=== PATIENT | female | born 1975 | race Caucasian/White ===

== ENCOUNTER 2020-06-28 17:19 | Emergency (ER) | payer OTHER, SELFPAY ==
[2020-06-28 18:38] VITALS: BP 108/60; PULSE 55; RESP 16; TEMP 37.2; O2SAT 99; BMI 25.2
--- NOTE | 2020-06-28 20:09 | ED.FALL ---
HPI - Fall General Chief Complaint: Fall <Dmitry Stubbs NP - Last Filed: 06/28/20 20:16> Stated Complaint: FALL <Dmitry Stubbs NP - Last Filed: 06/28/20 20:16> Time Seen by Provider: 06/28/20 20:09 <Dmitry Stubbs NP - Last Filed: 06/28/20 20:16> Source: patient <Dmitry Stubbs NP - Last Filed: 06/28/20 20:16> Mode of arrival: ambulatory <Dmitry Stubbs NP - Last Filed: 06/28/20 20:16> Limitations: no limitations <Dmitry Stubbs NP - Last Filed: 06/28/20 20:16> History of Present Illness MD complaint: fall <Dmitry Stubbs NP - Last Filed: 06/28/20 20:16> Onset (ago): hour(s) <Dmitry Stubbs NP - Last Filed: 06/28/20 20:16> Fall from: standing <Dmitry Stubbs NP - Last Filed: 06/28/20 20:16> Fall witnessed: yes, by bystander <Dmitry Stubbs NP - Last Filed: 06/28/20 20:16> Place fall occurred: other ( gestation) <Dmitry Stubbs NP - Last Filed: 06/28/20 20:16> Loss of consciousness: none <Dmitry Stubbs NP - Last Filed: 06/28/20 20:16> Prolonged down time: no <Dmitry Stubbs NP - Last Filed: 06/28/20 20:16> Symptoms prior to fall: none <Dmitry Stubbs NP - Last Filed: 06/28/20 20:16> Context: tripped/slipped ( states she tripped on a rug at the door) <Dmitry Stubbs NP - Last Filed: 06/28/20 20:16> Location of injury: other ( bilateral knee) <Dmitry Stubbs NP - Last Filed: 06/28/20 20:16> Location of injury - extremities: bilateral: lower leg <Dmitry Stubbs NP - Last Filed: 06/28/20 20:16> Severity: mild <Dmitry Stubbs NP - Last Filed: 06/28/20 20:16> Quality: aching <Dmitry Stubbs NP - Last Filed: 06/28/20 20:16> Associated symptoms (after fall): other ( pain at the site of the abrasion of bilateral knees and lower back) <Dmitry Stubbs NP - Last Filed: 06/28/20 20:16> Related Data Allergies/Adverse Reactions: Allergies Allergy/AdvReac Type Severity Reaction Status Date / Time Penicillins Allergy Mild HIVES/VOMIT Verified 06/28/20 18:42 ING <Dmitry Stubbs NP - Last Filed: 06/28/20 20:16> Review of Systems Review of Systems: Constitutional: No Weight loss, No Fever, No Chills, No Night Sweats, No Fatigue, No Malaise ENT/Mouth: No Hearing loss, No Ear Pain, No Nasal Congestion, No Sinus Pain, No Hoarseness, No sore throat, No Rhinorrhea, No Swallowing Difficulty Eyes: No Eye Pain, No Swelling, No Redness, No Foreign Body, No Discharge, No Vision Changes Cardiovascular: No Chest Pain, No SOB, No Dyspnea on Exertion, No Orthopnea, No Edema, No Palpitations Respiratory: No Cough, No Sputum, No Wheezing, No Smoke Exposure, No Dyspnea Gastrointestinal: No Nausea, No Vomiting, No Diarrhea, No Constipation, No abdominal Pain, No Hematochezia, No Melena Genitourinary: no irregular bleeding, No Dysuria, No Urinary Frequency, No Hematuria, No Urinary Incontinence, No Urgency, No Flank Pain, No Urinary Flow Changes, No Hesitancy Musculoskeletal: No joint pain, No Myalgias, No Joint Swelling + abrasion to bilateral knees, back pain Skin: No Skin Lesions, No rash Neuro: No Weakness, No Numbness, No Paresthesias, No Loss of Consciousness, No Dizziness, No Headache Psych: No Anxiety/Panic, No Depression, No SI/HI/AH/VH, No Social Issues, Heme/Lymph: No Bruising, No Bleeding,No Lymphadenopathy Endocrine: No Polyuria, No Polydipsia, No Temperature Intolerance <RUBI Bains Last Filed: 06/28/20 20:16> Yes all other systems are reviewed and are negative <RUBI Bains Last Filed: 06/28/20 20:16> PMFSH Past Medical History Medical History: Medical History Anxiety Depression Drug abuse and dependence Methadone maintenance therapy patient PTSD (post-traumatic stress disorder) <Dmitry Stubbs NP - Last Filed: 06/28/20 20:16> Social History Social History: Social History Alcohol intake: never Smoking Status: Current every day smoker Smoked in Last 30 Days: Yes Use of substances other than those prescribed or required for medical reasons: No Substance Use Type: Prescription Drugs Substance Use Type Other:: METHADONE Advance Directives: No Advance Directives Information Provided: Yes <Dmitry Stubbs NP - Last Filed: 06/28/20 20:16> Physical Exam Vital Signs: Vital Signs: Vital Signs Temp Pulse Resp BP Pulse Ox 06/28/20 18:38 99.0 F 55 16 108/60 99 Body Mass Index 25.2 reviewed <Dmitry Stubbs NP - Last Filed: 06/28/20 20:16> Vital Signs: Vital Signs Temp Pulse Resp BP Pulse Ox 06/28/20 18:38 99.0 F 55 16 108/60 99 Body Mass Index 25.2 <Demarcus Peters MD - Last Filed: 07/03/20 15:23> Const: General: cooperative and healthy appearing; No acute distress or intoxicated appearing <Dmitry Stubbs NP - Last Filed: 06/28/20 20:16> Nutritional Appearance: average body habitus <Dmitry Stubbs NP - Last Filed: 06/28/20 20:16> Orientation/consciousness: patient oriented x3 <Dmitry Stubbs NP - Last Filed: 06/28/20 20:16> HENMT: Head: Yes normal to inspection <Dmitry Stubbs NP - Last Filed: 06/28/20 20:16> Ears: hearing grossly normal bilaterally <Dmitry Stubbs NP - Last Filed: 06/28/20 20:16> Eyes: General: appearance normal, both eyes and all related structures <Dmitry tSubbs NP - Last Filed: 06/28/20 20:16> Visual Holcomb: normal visual holcomb by confrontation <Dmitry Stubsb NP - Last Filed: 06/28/20 20:16> Neck: Neck: Yes normal visual inspection and No tender <Dmitry Stubbs, [employer] - Last Filed: 06/28/20 20:16> Thyroid: Thyroid normal <[facility] Enoc [employer] - Last Filed: 06/28/20 20:16> Chest: Chest palpation & inspection: normal inspection of the chest <Dmitry Enoc [employer] - Last Filed: 06/28/20 20:16> Resp: Effort & Inspection: normal respiratory effort <[facility] [employer] - Last Filed: 06/28/20 20:16> Cardio: Jugular venous distension: no JVD <[facility] Stubbs [employer] - Last Filed: 06/28/20 20:16> GI: Inspection: Yes normal to inspection <[facility] Stubbs [employer] - Last Filed: 06/28/20 20:16> Percussion: Yes normal to percussion <[facility] Stubbs [employer] - Last Filed: 06/28/20 20:16> Auscultation: normal bowel sounds <[facility] Stubbs [employer] - Last Filed: 06/28/20 20:16> : General: Yes no CVA tenderness <[facility] Stubbs [employer] - Last Filed: 06/28/20 20:16> Back/Spine/Pelvis: Back: no CVA tenderness <[facility] Stubbs [employer] - Last Filed: 06/28/20 20:16> Skin: General skin exam: no rashes or lesions noted <[facility] Stubbs [employer] - Last Filed: 06/28/20 20:16> Neuro: General: patient oriented x3 <[facility] Stubbs [employer] - Last Filed: 06/28/20 20:16> Extrem: General: Yes normal to inspection <[facility] Stubbs [employer] - Last Filed: 06/28/20 20:16> Psych: Appearance: grossly normal <[facility] Stubbs [employer] - Last Filed: 06/28/20 20:16> Course Course Course Narrative: I have reviewed the chart <Demarcus Peters MD - Last Filed: 07/03/20 15:23> MDM - Fall MDM Narrative Medical decision making narrative: AP of mechanical fall with results of abrasion to the bilateral knee. Ambulatory status with gait. No obvious deformity. No indication for imaging. Patient agreeable with this discharge return follow-up precautions provided. Stable for discharge. <[facility] Stubbs, [employer] - Last Filed: 06/28/20 20:16> Differential Diagnosis Differential diagnosis: Unlikely syncope, dislocation, fracture ( contusion, sprain, abrasion), compression fracture and concussion with loss of consciousness <Dmitry Stubbs NP - Last Filed: 06/28/20 20:16> Discharge Plan Discharge Clinical Impression: Fall, Abrasion of both knees, Lumbar spine strain <Dmitry Stubbs NP - Last Filed: 06/28/20 20:16> Patient Disposition: Home, Self-Care <Dmitry Stubbs NP - Last Filed: 06/28/20 20:16> Instructions: Low Back Strain (ED), Abrasion (ED) <Dmitry Stubbs NP - Last Filed: 06/28/20 20:16> Additional Instructions: Gentle stretching Warm compresses Tylenol alternate with Motrin per label instructions for pain discomfort Follow-up her primary care doctor as instructed Return if any concerns or worsening symptoms Thank you <Dmitry Stubbs NP - Last Filed: 06/28/20 20:16> Referrals: Physician,Unknown [Primary Care Provider] - 1 week ( your primary care doctor) <Dmitry Stubbs NP - Last Filed: 06/28/20 20:16> Interventions: ED Discharge Assessment Last Done: 06/28/20 20:16 <Dmitry Stubbs NP - Last Filed: 06/28/20 20:16> Discharge Date/Time: 06/28/20 20:13 <Dmitry Stubbs NP - Last Filed: 06/28/20 20:16>
== END 2020-06-28 20:13 | disposition home or self-care (01) ==
PROVIDERS: Emergency Provider Emergency Medicine
DX: S39.012A Strain of muscle, fascia and tendon of lower back, initial encounter (principal); S80.212A Abrasion, left knee, initial encounter; S80.211A Abrasion, right knee, initial encounter; W00.0XXA Fall on same level due to ice and snow, initial encounter; F11.20 Opioid dependence, uncomplicated; F43.10 Post-traumatic stress disorder, unspecified; Y93.89 Activity, other specified; Y92.019 Unspecified place in single-family (private) house as the place of occurrence of the external cause; Y99.9 Unspecified external cause status
CPT/HCPCS: 99283; 99284

== ENCOUNTER 2022-06-03 14:17 | Emergency (ER) | payer OTHER, SELFPAY ==
--- NOTE | ~2022-06-03 | CT_ITS ---
EXAMINATION: NONCONTRAST HEAD CT NONCONTRAST CERVICAL SPINE CT INDICATION INFORMATION: Head injury COMPARISON: 08/01/2011 TECHNIQUE: Separate noncontrast CT examinations of the head and cervical spine were performed. Coronal head CT images and coronal and sagittal cervical spine images were created at the technologist workstation. DLP: 1000 mGy-cm DOSE LOWERING TECHNIQUES: This CT examination was performed using dose optimization techniques as appropriate, variously including the following: - Automated exposure control - Adjustment of mA and/or kV according to patient size (this includes techniques or standardized protocols for targeted exams were dose is matched to indication/reason for exam; i.e. extremities or head) - Use of iterative reconstruction technique FINDINGS: Head: There is no evidence of acute intracranial hemorrhage or territorial infarction. No abnormal mass-effect or midline shift is seen. Hagan to white matter differentiation is well preserved. No extra-axial fluid collections are identified. The ventricles are normal in size. There is no abnormal attenuation within the brain parenchyma. The osseous structures and soft tissues are normal. Mild mucosal thickening of the bilateral ethmoid air cells. The mastoid air cells are well-aerated. Cervical spine: There is grade 1 anterolisthesis of C3 on C4 and C4 on C5, favored to be chronic/degenerative in nature in the setting of left-sided facet arthropathy. Vertebral body heights are maintained. There is degenerative change at the atlantodens articulation. Intervertebral disc spaces are relatively well-preserved. No evidence of acute fracture. No prevertebral soft tissue swelling. Visualized portions of the lung apices are unremarkable. The thyroid gland is unremarkable. CT/CT cervical spine wo IV con IMPRESSION: No acute findings identified in the head or cervical spine. Chronic appearing and degenerative changes as noted above.
[2022-06-03 14:27] VITALS: BP 120/70; BP 128/82; PULSE 72; PULSE 78; RESP 18; TEMP 36.8; O2SAT 96; O2SAT 98; BMI 23.2
--- NOTE | 2022-06-03 14:28 | ED.GENADULT ---
HPI - General Adult General Chief complaint: Wound/Laceration Stated complaint: LAC TO HEAD,+CCOLLAR PER EMS Time Seen by Provider: 06/03/22 14:28 Source: patient and EMS Mode of arrival: EMS Limitations: no limitations History of Present Illness HPI narrative: Patient is a 47-year-old female presenting via EMS to the emergency department with a laceration to the scalp. Patient reports that she was at [employer] station with her daughter teaching her how to change the oil of a car, when the carrasco of the car slipped and hit her head. Patient stated she remained standing after the injury, denies any loss of consciousness, nausea, vomiting, loss of control of bowel/bladder, dizziness, or vision changes. Patient was able to drive from the [employer] station to her home after the injury, however then called 911 for transport. Denies use of any blood thinners. 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 MD complaint: Laceration Onset (ago): hour(s) Location: head Radiation: non-radiation Severity: mild Severity scale (1-10): 2 Relieving factors: none Exacerbating factors: none Associated symptoms: denies other symptoms Treatments prior to arrival: none Related Data Previous Rx's Medication Instructions Recorded doxycycline hyclate 100 mg tablet 100 mg PO BID 7 days #14 tabs 06/03/22 sulfamethoxazole 400 1 tab PO BID 7 days #14 tabs 06/03/22 mg-trimethoprim 80 mg tablet (Bactrim) Allergies Allergy/AdvReac Type Severity Reaction Status Date / Time Penicillins Allergy Mild HIVES/VOMIT Verified 06/03/22 14:27 ING Review of Systems Constitutional: Constitutional: Reports no additional constitutional complaints, Denies chills, Denies fever(s) and Denies night sweats Eyes: Eyes: Reports no additional eye complaints, Denies blurry vision, Denies change in vision, Denies diplopia, Denies eye discharge, Denies loss of vision and Denies eye pain ENT: Denies dizziness Cardiovascular: Cardiovascular: Reports no additional cardiovascular complaints, Denies chest pain, Denies lightheadedness, Denies Loss of Consciousness and Denies dyspnea Respiratory: Respiratory: Reports no additional respiratory complaints and Denies dyspnea Gastrointestinal: Gastrointestinal: Reports no additional gastrointestinal complaints, Denies abdominal pain, Denies melena, Denies hematochezia, Denies change in bowel habits and Denies change in stool character Genitourinary: Genitourinary: Denies hematuria, Denies urinary frequency, Denies dysuria, Denies urinary incontinence, Denies urinary hesitancy and Denies urinary urgency Musculoskeletal: Musculoskeletal: Reports no additional musculoskeletal complaints, Denies numbness and Denies tingling Integumentary/Breasts: Comments: Laceration to head Neurologic: Denies dizziness, Denies loss of vision, Denies numbness and Denies tingling Psychiatric: Psychiatric: Reports no additional psychiatric complaints Endocrine: Endocrine: Reports no additional endocrine complaints Hematologic/Lymphatic: Hematologic/Lymphatic: Reports no additional hematologic/lymphatic complaints Allergic/Immunologic: Allergic/Immunologic: Reports no additional allergic/immunologic complaints PMFSH Past Medical History Attestation statement: The following information was validated with the patient. Source: old records reviewed Medical History (Updated 06/03/22 @ 17:04 by DIRK Mccauley) Anxiety Depression Drug abuse and dependence Methadone maintenance therapy patient PTSD (post-traumatic stress disorder) Stroke Social History Social History Alcohol intake: never Patient Tobacco Use Status: Never used Tobacco Use of substances other than those prescribed or required for medical reasons: No Substance Use Type: Former Substance User Advance Directives: No Advance Directives Information Provided: No Patient : No Physical Exam ED Vital Signs: Vital Signs - 24 hr 06/03/22 14:27 06/03/22 15:34 Temperature 98.3 F Pulse Rate 72 53 Respiratory Rate 18 13 Blood Pressure 120/70 109/64 Pulse Oximetry 96 96 Oxygen Delivery Method Room Air Room Air BMI result Body Mass Index 23.2 Const General: cooperative, no acute distress, alert and awake Nutritional Appearance: well nourished Orientation/consciousness: patient oriented x3 Limitations: no limitations HENMT Head: Yes laceration (frontal scalp) Ears: hearing grossly normal bilaterally and external ears normal General nose exam: Normal external nose present, no nasal discharge noted and no epistaxis Face and sinus: Yes normal facial exam, No abrasion and No laceration Mouth: Normal oral and palatal mucosa present, no drooling and no muffled voice Eyes General: appearance normal, both eyes and all related structures Periorbital: periorbital findings normal Eyelids: Yes eyelids normal Conjunctivae: conjunctivae normal Pupils: Equal, round and reactive pupils present EOM: EOMs intact bilaterally Neck Neck: Yes normal visual inspection, Yes full ROM and Yes no lymphadenopathy Chest Chest palpation & inspection: normal inspection of the chest Resp Effort & Inspection: normal respiratory effort and able to speak in complete sentences Auscultation: clear to auscultation bilaterally Cardio Rate: regular rate Rhythm: regular rhythm GI Inspection: Yes normal to inspection Skin Other: 4 cm linear laceration to frontal scalp above hairline, not active bleeding, no foreign bodies appreciated. Neuro General: patient oriented x3 and moves all extremities Cranial nerves: Yes Equal, round and reactive pupils present Cognition (Neuro): normal cognition Motor exam (neuro): 5/5 motor strength present throughout Sensory Exam: Normal double simultaneous stimulation for sensation Coordination: [id number] test normal Extrem General: Yes normal to inspection, Yes full ROM and Yes capillary refill normal Psych Appearance: grossly normal Mental Status: mental status grossly normal Affect: normal affect Attitude: cooperative Thought process: Normal thought process present Thought content: Normal thought content present Insight: Good insight present (Psych) Procedures Laceration Laceration 1: Site: scalp Size (cm): 4 Description: linear Depth: simple, single layer Pre-repair: wound explored, irrigated extensively and deep structures intact Skin layer closed with: other (tamara) Size (cm): other (tamara) Number of sutures: 3 Medical Decision Making MDM Narrative Medical decision making narrative: Patient is a 47 year old female presenting to the emergency department today with a scalp laceration. Patient's physical exam showed a 4cm laceration to her frontal scalp with no active bleeding. Patient's head and neck CT showed no acute process. I explained my physical exam findings as well as all test results to the patient. I answered all questions asked by the patient. Patient received IM Toradol which she stated helped her headache significantly. Patient's laceration was repaired with 3 tamara, without incident. I stressed the importance of the patient taking her medication as prescribed. I stressed the importance of the patient following up with her primary care provider. I stressed the importance of the patient returning to the emergency department immediately if her symptoms were to worsen or if she were to develop any dizziness, shortness of breath, difficulty breathing, chest pain, blurry vision, loss of vision, nausea, vomiting, abdominal pain, fever, chills, back pain, or any other complaints. Patient verbalized agreement and understanding with this treatment plan and discharge. Differential Diagnosis Differential Diagnosis: laceration Medical Records Medical records reviewed: Yes I reviewed the patient's medical records. Imaging Data CT head and c-spine: Attestation: I personally reviewed and interpreted this imaging study as follows: My impression: No acute process. Radiologist's impression: EXAMINATION: NONCONTRAST HEAD CT NONCONTRAST CERVICAL SPINE CT INDICATION INFORMATION: Head injury COMPARISON: 08/01/2011 TECHNIQUE: Separate noncontrast CT examinations of the head and cervical spine were performed. Coronal head CT images and coronal and sagittal cervical spine images were created at the technologist workstation. DLP: 1000 mGy-cm DOSE LOWERING TECHNIQUES: This CT examination was performed using dose optimization techniques as appropriate, variously including the following: ?- Automated exposure control ?- Adjustment of mA and/or kV according to patient size (this includes techniques or standardized protocols for targeted exams were dose is matched to indication/reason for exam; i.e. extremities or head) ?- Use of iterative reconstruction technique FINDINGS: Head: There is no evidence of acute intracranial hemorrhage or territorial infarction. No abnormal mass-effect or midline shift is seen. Hagan to white matter differentiation is well preserved. No extra-axial fluid collections are identified. The ventricles are normal in size. There is no abnormal attenuation within the brain parenchyma. The osseous structures and soft tissues are normal. Mild mucosal thickening of the bilateral ethmoid air cells. The mastoid air cells are well-aerated. Cervical spine: There is grade 1 anterolisthesis of C3 on C4 and C4 on C5, favored to be chronic/degenerative in nature in the setting of left-sided facet arthropathy. Vertebral body heights are maintained. There is degenerative change at the atlantodens articulation. Intervertebral disc spaces are relatively well-preserved. No evidence of acute fracture. No prevertebral soft tissue swelling. Visualized portions of the lung apices are unremarkable. The thyroid gland is unremarkable. CT/CT cervical spine wo IV con IMPRESSION: No acute findings identified in the head or cervical spine. Chronic appearing and degenerative changes as noted above. Dictated By: Juan Ramachandran MD Signed By: Electronically signed by Juan Ramachandran MD 06/03/22 2206 Discharge Plan Discharge Clinical Impression: Laceration Patient Disposition: Home, Self-Care Instructions: Laceration (ED) Additional Instructions: Have your tamara removed in 10 days. Do NOT soak the stapled area. Follow up with your primary care provider. Return to the emergency department immediately if your symptoms worsen or if you develop any dizziness, shortness of breath, difficulty breathing, chest pain, blurry vision, loss of vision, nausea, vomiting, abdominal pain, fever, chills, back pain, or any other complaints. Prescriptions: New doxycycline hyclate 100 mg tablet 100 mg PO BID 7 Days Qty: 14 0RF sulfamethoxazole-trimethoprim [Bactrim] 400-80 mg tablet 1 tab PO BID 7 Days Qty: 14 0RF Referrals: Pete Leon MD [Primary Care Provider] - Stand Alone Forms: Work/School Release Interventions: ED Discharge Assessment Last Done: 06/03/22 17:20 Discharge Date/Time: 06/03/22 17:20 Print Language: Azeri
--- NOTE | 2022-06-03 14:32 | PC.NURSE ---
patient a&ox3, vss, pt c/o head pain 5-7/10 pain, call avilez within reach, will continue to monitor.
[2022-06-03 15:34] VITALS: BP 109/64; PULSE 53; RESP 13; O2SAT 96
[2022-06-03] MEDS: Ketorolac Tromethamine 15 MG/ML VIAL IM (16:53)
== END 2022-06-03 17:20 | disposition home or self-care (01) ==
PROVIDERS: Emergency Provider Emergency Medicine; PCP Internal Medicine
DX: S01.01XA Laceration without foreign body of scalp, initial encounter (principal); R51.9 Headache, unspecified; M54.2 Cervicalgia; Y99.9 Unspecified external cause status; Y28.9XXA Contact with unspecified sharp object, undetermined intent, initial encounter; Y93.9 Activity, unspecified; Y92.9 Unspecified place or not applicable
CPT/HCPCS: 12002; 70450; 72125; 96372; 99284; J1885

== ENCOUNTER 2022-06-17 17:37 | Emergency (ER) | payer OTHER, SELFPAY ==
[2022-06-17 18:10] VITALS: BP 111/52; PULSE 54; RESP 16; TEMP 36.2; O2SAT 97; BMI 23.3
--- NOTE | 2022-06-17 18:49 | ED.SKABFB ---
HPI - Skin/Abscess/Foreign Bdy General Chief complaint: Skin/Abscess/Foreign Body Stated complaint: suture removal Time Seen by Provider: 06/17/22 18:41 Source: patient Mode of arrival: ambulatory Limitations: no limitations History of Present Illness HPI narrative: Patient comes to the emergency room for staple removal. On June 03, patient had a laceration to the scalp, received 3 tamara. The healed well. Patient has no complaints. Related Data Previous Rx's Medication Instructions Recorded doxycycline hyclate 100 mg tablet 100 mg PO BID 7 days #14 tabs 06/03/22 sulfamethoxazole 400 1 tab PO BID 7 days #14 tabs 06/03/22 mg-trimethoprim 80 mg tablet (Bactrim) Allergies Allergy/AdvReac Type Severity Reaction Status Date / Time Penicillins Allergy Mild HIVES/VOMIT Verified 06/03/22 14:27 ING Review of Systems Review of Systems: Constitutional : No Weight loss, No Fever, No Chills, No Night Sweats, No Fatigue, No Malaise ENT/Mouth : No Hearing loss, No Ear Pain, No Nasal Congestion, No Sinus Pain, No Hoarseness, No sore throat, No Rhinorrhea, No Swallowing Difficulty Eyes: No Eye Pain, No Swelling, No Redness, No Foreign Body, No Discharge, No Vision Changes Cardiovascular : No Chest Pain, No SOB, No Dyspnea on Exertion, No Orthopnea, No Edema, No Palpitations Respiratory : No Cough, No Sputum, No Wheezing, No Smoke Exposure, No Dyspnea Gastrointestinal : No Nausea, No Vomiting, No Diarrhea, No Constipation, No abdominal Pain, No Hematochezia, No Melena Genitourinary : no irregular bleeding, No Dysuria, No Urinary Frequency, No Hematuria, No Urinary Incontinence, No Urgency, No Flank Pain, No Urinary Flow Changes, No Hesitancy Musculoskeletal : No joint pain, No Myalgias, No Joint Swelling Skin : Laceration in scalp healed well Neuro : No Weakness, No Numbness, No Paresthesias, No Loss of Consciousness, No Dizziness, No Headache Psych : No Anxiety/Panic, No Depression, No SI/HI/AH/VH, No Social Issues, Heme/Lymph: No Bruising, No Bleeding,No Lymphadenopathy Endocrine : No Polyuria, No Polydipsia, No Temperature Intolerance PMFSH Past Medical History Medical History Anxiety Depression Drug abuse and dependence Methadone maintenance therapy patient PTSD (post-traumatic stress disorder) Stroke Social History Social History Alcohol intake: never Patient Tobacco Use Status: Never used Tobacco Substance Use Type: Former Substance User Physical Exam Vital Signs: Vital Signs: Last Vital Signs Temp 97.1 F 06/17/22 18:10 Pulse 54 06/17/22 18:10 Resp 16 06/17/22 18:10 BP 111/52 L 06/17/22 18:10 Pulse Ox 97 06/17/22 18:10 O2 Del Method 06/17/22 18:10 BMI result Body Mass Index 23.3 Const: Other: Appearance: Alert. Oriented X3. No acute distress. Eyes: Pupils equal, round and reactive to light. ENT: Pharynx normal. Neck: Normal inspection. Neck supple. No lymph nodes noted. No crepitus CVS: Normal heart rate and rhythm. Pulses normal. Normal S1 and S2 Respiratory: No respiratory distress. Breath sounds normal. No Wheezing. No rales Abdomen: Soft and nontender. No rigidity. No distention. Skin: Skin warm and dry. Normal skin color. Normal skin turgor. Laceration healed well Extremities: No lower extremity edema. No Lacerations. No Rash Neuro: Oriented X 3. No motor deficit. No sensory deficit. Moving all extremities. No slurred speech. CN 2 through 12 grossly intact Psych: calm, cooperative, normal affect Course Course Course Narrative: Three tamara were successfully removed Discharge Plan Discharge Clinical Impression: Removal of tamara Patient Disposition: Home, Self-Care Additional Instructions: Please follow-up with your primary care physician tomorrow. If you have any worsening or new symptoms, please return to the emergency room or call 911 Prescriptions: No Action doxycycline hyclate 100 mg tablet 100 mg PO BID 7 Days Qty: 14 0RF sulfamethoxazole-trimethoprim [Bactrim] 400-80 mg tablet 1 tab PO BID 7 Days Qty: 14 0RF
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
== END 2022-06-17 19:23 | disposition home or self-care (01) ==
PROVIDERS: Emergency Provider Emergency Medicine; PCP Internal Medicine
DX: Z48.02 Encounter for removal of sutures (principal)
CPT/HCPCS: 99282; 99283

== ENCOUNTER 2023-10-28 14:00 | Outpatient (REF) | payer OTHER, SELFPAY ==
[2023-10-28 15:47] LABS: Erythrocyte Sedimentation Rate 13 MM/HR (0-20)
[2023-10-28 15:54] LABS: Vitamin B12 486 pg/mL (200-900)
[2023-10-29 14:48] LABS: Lyme Abs Screen <0.90 index
== END 2023-10-28 14:01 | disposition home or self-care (01) ==
LOC: HO.LAB 14:00
PROVIDERS: Visit Provider Psychiatry & Neurology Neurology
DX: G31.84 Mild cognitive impairment of uncertain or unknown etiology (principal)
CPT/HCPCS: 36415; 82607; 85652; 86617; 86618